=== PATIENT | female | born 1945 | race Caucasian/White ===

== ENCOUNTER → 2018-05-09 | Outpatient (CLI) | payer MEDICARE | END | disposition home or self-care (01) | LOC: PCVCIMAG 14:34 | DX: R00.2 Palpitations (principal) | CPT/HCPCS: 93306 ==

== ENCOUNTER → 2018-06-04 | Outpatient (CLI) | payer MEDICARE | END | disposition home or self-care (01) | LOC: PCVCCLINIC 15:43 | PROVIDERS: ATTEND Internal Medicine | DX: E78.5 Hyperlipidemia, unspecified (principal); I10 Essential (primary) hypertension; Z87.898 Personal history of other specified conditions; Z79.899 Other long term (current) drug therapy; Z87.891 Personal history of nicotine dependence; Z88.8 Allergy status to other drugs, medicaments and biological substances | CPT/HCPCS: G0463 ==

== ENCOUNTER → 2019-06-11 | Outpatient (CLI) | payer MEDICARE | END | disposition home or self-care (01) | LOC: PCVCCLINIC 14:00 | PROVIDERS: ATTEND Internal Medicine | DX: I47.2 Ventricular tachycardia (principal); F41.9 Anxiety disorder, unspecified; R60.9 Edema, unspecified; I10 Essential (primary) hypertension; Z87.891 Personal history of nicotine dependence | CPT/HCPCS: 36415; 80061; 93005; G0463 ==

== ENCOUNTER → 2019-06-20 | Outpatient (CLI) | payer MEDICARE ==
[~2019-06-20] MED LIST: REGADENOSON 0.4 MG/5 ML DISP.SYRIN. IV ONE
--- NOTE | 2019-06-20 11:52 | PCVCIMAG ---
APPROVED REPORT Study performed: 06/20/2019 08:45:19 EXAM: Comprehensive 2D, Doppler, and color-flow Echocardiogram Patient Location: Echo lab Status: routine BSA: 1.67 HR: 62 bpmBP: 110/70 mmHg Rhythm: PVC's Other Information Study Quality: Fair Technically limited study due to rhythm, breast implants. Risk Factors: Cardiac Risk Factors: HTN Indications Palpitations Edema 2D Dimensions IVSd: 8.81 (7-11mm)LVOT Diam: 20.00 (18-24mm) LVDd: 39.47 mm PWd: 8.64 (7-11mm)Ascending Ao: 27.22 (22-36mm) LVDs: 27.49 (25-40mm) Left Atrium: 35.61 (27-40mm) Aortic Root: 25.56 mm LV Single Plane 4CH: 58.78 % Biplane EF: 60.0 % Volumes Left Atrial Volume (Systole) Single Plane 4CH: 34.40 mL Aortic Valve AoV Peak Hiram.: 1.16 m/s AO Peak Gr.: 5.41 mmHgLVOT Max P.62 mmHg LVOT Max V: 0.64 m/s [id number] Vmax: 1.69 cm2 Pulmonary Valve PV Peak Hiram.: 0.75 m/sPV Peak Gr.: 2.23 mmHg Tricuspid Valve TR Peak Hiram.: 2.41 m/sRAP Estimate: 7.00 mmHg TR Peak Gr.: 23.15 mmHg PA Pressure: 30.00 mmHg Left Ventricle The left ventricle is normal size. There is normal LV segmental wall motion. There is normal left ventricular wall thickness. Left ventricular systolic function is normal. The left ventricular ejection fraction is within the normal range. LVEF is 55-60%. This study is not technically sufficient to allow evaluation of the LV diastolic function due to arrhythmia. Right Ventricle The right ventricle is normal size. The right ventricular systolic function is normal. Atria The left atrium size is normal. The right atrium size is normal. Aortic Valve The aortic valve is normal in structure. No aortic regurgitation is present. There is no aortic valvular stenosis. Mitral Valve The mitral valve is normal in structure. Mild mitral regurgitation. No evidence of mitral valve stenosis. Tricuspid Valve The tricuspid valve is normal in structure. Trace to mild tricuspid regurgitation. Pulmonary artery pressure is 30 mmHg. Pulmonic Valve The pulmonary valve is normal in structure. Trace pulmonic regurgitation. Great Vessels The aortic root is normal in size. The ascending aorta is normal in size. IVC is normal in size and collapses >50% with inspiration. Pericardium There is no pericardial effusion. <Conclusion> The left ventricle is normal size. LVEF is 55-60%. The aortic valve is normal in structure. The mitral valve is normal in structure. Mild mitral regurgitation. The tricuspid valve is normal in structure. Trace to mild tricuspid regurgitation. Pulmonary artery pressure is 30 mmHg. The pulmonary valve is normal in structure. Trace pulmonic regurgitation. There is no pericardial effusion.
--- NOTE | 2019-06-20 13:08 | PCVCIMAG ---
APPROVED REPORT Imaging Protocol: Rest Tc-99m/Stress Tc-99m 1 day Study performed: 06/20/2019 09:44:29 Indication: Palpitations, Ventricular Tachycardia Patient Location: Out-Patient Stress Nurse: Cate Childers RN, Nisha Joe RN [place] Tech:Sherita Bhandarihbun [facility] Ht: 5 ft 6 in Wt: 131 lbs BSA: 1.67 m2 HR: 67 bpm BP: 129/64 mmHg BMI: 21.14 Rhythm: Sinus Rhythm, nonspecific ST-T abnormalities, PVC's, Runs Medical History Medical History: Former Smoker Medications: Xanax, [place], Flonase, Lasix, [place], Requip, Ambien, Lexapro, Motoprolol Allergies: ASA Cardiac Risk Factors: Age Pretest Chest Pain Characteristics: No chest pain Exercise History: Indeterminate Resting Data Rest SPECT myocardial perfusion imaging was performed in supine position 45 minutes following the intravenous injection of 9.9 mCi of Tc-99m Sestamibi. Time of rest injection: 944 Date: 06/20/2019 Administration Route: IV Administration Site: Right AC Pharmacologic Stress Pharmacologic stress test was performed by injecting Regadenoson 0.4 mg IV push over 10-15 seconds immediately followed by the intravenous injection of 33.3 mCi of Tc-99m Sestamibi. Time of stress injection: 5 Date: 06/20/2019 Administration Route: IV Administration Site: Right AC Gated Stress SPECT was performed 45 minutes after stress injection. The images were gated to evaluate regional wall motion and calculate left ventricular ejection fraction. Stress Test Details Stress Test: Pharmacologic stress testing performed using 0.4 mg of regadenoson per 5 mL given IV over 10 seconds. Reason for pharmacologic stress test: physical limitation. HRMax Heart Rate (APMHR): 145 bpm Resting HR: 67 bpmTarget HR (85% APMHR): 123 bpm Max HR Achieved: 92 bpm % of APMHR: 63 Recovery HR: 82 bpm BP Resting BP: 129/64 mmHg Max BP: 132/62 mmHg Recovery BP: 120/56 mmHg ECG Resting ECG: Sinus Rhythm, nonspecific ST-T abnormalities, PVC's, Runs Stress ECG: Sinus Rhythm, nonspecific ST-T abnormalities, PVC's, Runs Recovery ECG: Sinus Rhythm, nonspecific ST-T abnormalities, PVC's, Runs Clinical Reason for Termination: Completed protocol Stress Symptoms: Abdominal discomfort, Dyspnea, Nausea Symptoms resolved with caffeine. Stress ECG Conclusion 1. Adequate response to intravenous Lexiscan 2. Inadequate heart rate for ECG diagnosis Study Data Post stress, the left ventricular ejection was 74%.. SSS: 0 SRS: 3 SDS: 0 TID = 1.23. Perfusion There is a small area of moderately reduced uptake in the apical segment of the anterior wall which is seen on the stress images as well as the resting images. This area thickens and moves normally and is most consistent with attenuation artifact. Nuclear Conclusion ECG Findings: non-diagnostic Clinical Findings: negative for ischemia Nuclear Findings: negative for ischemia Exercise Capacity: not assessed Left Ventricular Function: normal 1. Low risk study 2. Post stress left ventricular ejection fraction of 74% without wall motion abnormalities <Conclusion> 1. Adequate response to intravenous Lexiscan 2. Inadequate heart rate for ECG diagnosis
== END | disposition home or self-care (01) ==
LOC: PCVCIMAG 08:38
PROVIDERS: ATTEND Internal Medicine
DX: I08.1 Rheumatic disorders of both mitral and tricuspid valves (principal); I49.3 Ventricular premature depolarization; F41.9 Anxiety disorder, unspecified; Z87.891 Personal history of nicotine dependence
CPT/HCPCS: 78452; 93017; 93306; A9500; G0463; J2785